=== PATIENT | female | born 1995 | race Caucasian/White ===

== ENCOUNTER → 2023-10-17 | Outpatient (CLI) | payer BC ==
[2023-10-17 14:47] LABS: HCT 42.3 % (37.2-46.3); HGB 13.8 g/dL (12.0-15.0); MCH 30.2 pg (27.0-32.0); MCHC 32.6 g/dL (32.0-37.0); MCV 92.6 FL (80.0-97.0); Mean Platelet Volume 9.3 FL (9.5-12.2); NRBC Per 100 WBC 0 X 10*3/uL (0.00-0.01); Platelet Count 372 X 10*3/uL (140-440); RBC 4.57 X 10*6/uL (4.10-5.20); RDW 12.1 % (11.5-14.5); WBC 8.41 X 10*3/uL (4.50-10.00)
[2023-10-17 15:43] LABS: ALT 42 U/L (8-44); AST 17 U/L (13-35); Albumin 4.5 g/dL (3.8-4.9); Albumin/Globulin Ratio 1.73 Ratio (1.60-3.17); Alkaline Phosphatase 58 U/L (41-126); BUN/Creat Ratio 17.33 Ratio (12.00-20.00); Blood Urea Nitrogen 15.6 mg/dL (9.0-27.0); Calcium 9.8 mg/dL (8.7-10.3); Carbon Dioxide 24.1 mmol/L (21.6-31.8); Chloride 103 mmol/L (96-109); Chol/HDL Ratio 2.83 Ratio; Globulin 2.6 g/dL (1.6-3.3); Glucose 99 mg/dL (70-110); HCG,Quantitative Serum <3.0 mIU/mL (0.0-6.0); LDL Cholesterol,Calculated 97.7 mg/dL (0.0-131.0); Potassium 4.6 mmol/L (3.5-5.5); Sodium 139 mmol/L (135-145); Total Bilirubin 0.4 mg/dL (0.3-1.2); Total Protein 7.1 g/dL (6.2-8.2); VLDL Calculation 12.88 mg/dL (5.00-40.00)
== END | disposition home or self-care (01) ==
LOC: LABWHC1 07:50
PROVIDERS: ATTEND Physician Assistant
DX: Z00.00 Encounter for general adult medical examination without abnormal findings (principal); O03.9 Complete or unspecified spontaneous abortion without complication
CPT/HCPCS: 36415; 80053; 80061; 83036; 84443; 84702; 85027; 86900; 86901

== ENCOUNTER → 2023-11-22 | Outpatient (CLI) | payer BC ==
--- NOTE | 2023-11-22 16:26 | XR ---
EXAMINATION TYPE: XR lumbar spine 2 or 3V DATE OF EXAM: 11/22/2023 COMPARISON: None HISTORY: Low back pain TECHNIQUE: 3 view lumbar spine FINDINGS: Vertebral body heights are preserved. Disc heights are preserved. There is some straighteni ng of the lumbar spine on the sagittal plane. Mild scoliosis convexity to the left is present in the frontal projection. Findings can be related to muscle spasm. IMPRESSION: 1. No acute osseous abnormality radiographically apparent. 2. Scoliosis and subtle kyphosis can be related to muscle spasm.
== END | disposition home or self-care (01) ==
LOC: RADXRMAIN 15:53
PROVIDERS: ATTEND Internal Medicine Rheumatology
DX: M41.86 Other forms of scoliosis, lumbar region (principal)
CPT/HCPCS: 72100